=== PATIENT | male | born 1955 ===

== ENCOUNTER 2023-09-26 18:59 | Outpatient (REF) | payer SELFPAY ==
[2023-09-26 17:24] LABS: Source Nasopharynx
[2023-09-26 18:07] LABS: COVID-19 PCR POSITIVE (Negative)
== END 2023-09-26 19:00 | disposition home or self-care (01) ==
LOC: NCHCN 18:59
PROVIDERS: PCP Internal Medicine; Visit Provider Nurse Practitioner Family
DX: Z20.822 Contact with and (suspected) exposure to COVID-19 (principal)
CPT/HCPCS: 87635